=== PATIENT | female | born 1955 | race Caucasian/White ===

== ENCOUNTER → 2018-01-25 | Outpatient (CLI) | payer BC ==
[~2018-01-25] MED LIST: CALC-1038 PO; CLON1TAB5 PO; DOCU250C90 PO; ESTR1TAB17 PO; HYDR-4060 PO; LEVO88TA7 PO; LIOT25 PO; SUMA100T PO
== END | disposition home or self-care (01) ==
LOC: RAH 13:19
PROVIDERS: ATTEND Family Medicine
DX: Z12.31 Encounter for screening mammogram for malignant neoplasm of breast (principal)
CPT/HCPCS: 77067

== ENCOUNTER → 2018-03-04 | Outpatient (CLI) | payer BC | END | disposition home or self-care (01) | LOC: OIH 09:04 | PROVIDERS: ATTEND Neurological Surgery | DX: M47.896 Other spondylosis, lumbar region (principal); M43.26 Fusion of spine, lumbar region | CPT/HCPCS: 72100 ==

== ENCOUNTER → 2018-08-01 | Outpatient (CLI) | payer MEDICARE ==
[~2018-08-01] MED LIST changes: +CLON1TAB12 PO; -CLON1TAB5 PO
== END | disposition home or self-care (01) ==
LOC: RAH 15:47
PROVIDERS: ATTEND Physical Medicine & Rehabilitation
DX: M16.12 Unilateral primary osteoarthritis, left hip (principal)
CPT/HCPCS: 73502

== ENCOUNTER → 2018-11-18 | Outpatient (CLI) | payer MEDICARE | END | disposition home or self-care (01) | LOC: RAH 15:45 | PROVIDERS: ATTEND Physical Medicine & Rehabilitation | DX: M47.812 Spondylosis without myelopathy or radiculopathy, cervical region (principal); M48.02 Spinal stenosis, cervical region; M51.36 Other intervertebral disc degeneration, lumbar region | CPT/HCPCS: 72141 ==

== ENCOUNTER → 2018-12-09 | Outpatient (CLI) | payer MEDICARE ==
[~2018-12-09] MED LIST changes: +GADODIAMIDE 10 MMOL/20 ML ML IV ONE
== END | disposition home or self-care (01) ==
LOC: RAH 14:53
PROVIDERS: ATTEND Physical Medicine & Rehabilitation
DX: M48.061 Spinal stenosis, lumbar region without neurogenic claudication (principal); M51.16 Intervertebral disc disorders with radiculopathy, lumbar region
CPT/HCPCS: 72158; A9579

== ENCOUNTER → 2019-02-19 | Outpatient (CLI) | payer MEDICARE ==
[~2019-02-19] MED LIST changes: -GADODIAMIDE 10 MMOL/20 ML ML IV ONE
== END | disposition home or self-care (01) ==
LOC: RAH 11:13
PROVIDERS: ATTEND Family Medicine
DX: Z01.818 Encounter for other preprocedural examination (principal); M47.815 Spondylosis without myelopathy or radiculopathy, thoracolumbar region
CPT/HCPCS: 71046

== ENCOUNTER → 2019-06-11 | Outpatient (CLI) | payer MEDICARE | END | disposition home or self-care (01) | LOC: RAH 11:20 | PROVIDERS: ATTEND Family Medicine | DX: Z12.31 Encounter for screening mammogram for malignant neoplasm of breast (principal) | CPT/HCPCS: 77067 ==

== ENCOUNTER → 2019-09-02 | Outpatient (CLI) | payer MEDICARE | END | disposition home or self-care (01) | LOC: RAH 10:55 | PROVIDERS: ATTEND Family Medicine | DX: E03.9 Hypothyroidism, unspecified (principal) | CPT/HCPCS: 76536 ==

== ENCOUNTER → 2020-05-10 | Outpatient (CLI) | payer MEDICARE ==
[~2020-05-10] MED LIST changes: +DOCU250C21 PO; -DOCU250C90 PO
== END | disposition home or self-care (01) ==
LOC: RAH 14:02
PROVIDERS: ATTEND Family Medicine
DX: Z01.818 Encounter for other preprocedural examination (principal)
CPT/HCPCS: 71046

== ENCOUNTER 2020-05-26 10:00 | Inpatient (IN) | payer MEDICARE ==
[~2020-05-26] VITALS: Ht 162.6 cm; Wt 59.1 kg
[~2020-05-26 10:00] MED LIST changes: -CALC-1038 PO; -CLON1TAB12 PO; -DOCU250C21 PO
[2020-05-26 12:57] LABS: BASOPHILS % (AUTO) 0.8 % (0.0-5.0); EOSINOPHILS % (AUTO) 1.8 % (0.0-8.0); HEMATOCRIT 39.3 % (36-48); LYMPHOCYTES % (AUTO) 26.2 % (21.0-51.0); MEAN CORPUSCULAR HEMOGLOBIN 31.4 pg (27.0-33.0); MEAN CORPUSCULAR HGB CONC 32.3 g/dL (32.0-36.0); MEAN CORPUSCULAR VOLUME 97.3 fL (79-99); MONOCYTES % (AUTO) 11.5 % (3.0-13.0); NEUTROPHILS % (AUTO) 59.1 % (40.0-77.0); PLATELET COUNT (AUTO) 327 K/uL (130-400); RED BLOOD CELL COUNT(AUTO) 4.04 MIL/uL (4.00-5.50); RED CELL DISTRIBUTION WIDTH 13.5 % (11.0-15.5); WHITE BLOOD COUNT (AUTO) 7.2 K/uL (4.8-10.8)
[2020-05-26 13:09] LABS: CREATININE 0.7 mg/dL (0.5-1.5); POTASSIUM 4.2 mmol/L (3.5-5.1)
[2020-05-26 13:10] LABS: INR 0.91 (0.85-1.15); PROTHROMBIN TIME 9.9 SEC (9.6-11.6)
[2020-05-26 13:57] LABS: APPEARANCE,URINE Clear (CLEAR); BILIRUBIN,URINE Negative (NEGATIVE); COLOR,URINE Dark Yellow (YELLOW); GLUCOSE, URINE (UA) Negative (NEGATIVE); KETONES,URINE Trace mg/dL (NEGATIVE); LEUKOCYTE ESTERASE ,URINE Negative (NEGATIVE); NITRATE,URINE Negative (NEGATIVE); OCCULT BLOOD,URINE Negative (NEGATIVE); PH,URINE 5.5 (5.0-8.0); PROTEIN,URINE Negative (NEGATIVE)
[2020-05-26 14:14] LABS: BACTERIA,URINE Rare /HPF (None Seen); MUCUS,URINE Few LPF (None Seen); RBC,URINE 0-1 /HPF (0-1); SQUAMOUS EPITHELIAL CELL,UR Few /HPF (0-2); WBC,URINE 0-1 /HPF (0-1)
[2020-06-01 11:01] VITALS: BP 111/69
[2020-06-01] MEDS ORDERED: CYCL10TA7 PO (11:42)
[2020-06-01] MEDS ORDERED: [UNRECOGNIZED DRUG - CODE] PO (11:42)
[2020-06-01] MEDS ORDERED: DULO60CA64 PO (11:42)
[2020-06-01] MEDS ORDERED: TRAZ-185 PO (11:42)
[2020-06-02] VITALS (28 sets, daily range): BP systolic 101–121; BP diastolic 44–67
[2020-06-02] MEDS ORDERED: CEFAZOLIN SODIUM 1 GM VIAL IVP SCH (06:00)
[2020-06-02] MEDS ORDERED: LACTATED RINGERS 1000ML 1,000 ML IV ONE (08:12)
[2020-06-02] MEDS ORDERED: MEPERIDINE-PF 25 MG/ML SYG ONE ×3 (08:43→15:59)
[2020-06-02] MEDS ORDERED: ONDANSETRON HCL 4 MG/2 ML VIAL ONE ×2 (08:43→14:45)
[2020-06-02] MEDS ORDERED: METOCLOPRAMIDE 10 MG/2 ML VIAL ONE (11:07)
[2020-06-02] MEDS ORDERED: ACETAMINOPHEN EXTRA STRENGTH 500 MG TABLET ONE (11:07)
[2020-06-02] MEDS ORDERED: CELECOXIB 200 MG CAP ONE (11:08)
[2020-06-02] MEDS ORDERED: KETOROLAC TROMETHAMINE 15MG/ML ONE (11:08)
[2020-06-02] MEDS ORDERED: LIDOCAINE PF 2% 5ML ABBOJECT ONE (11:19)
[2020-06-02] MEDS ORDERED: SUCCINYLCHOLINE CHLORIDE 20 MG/ML 10 ML VIAL ONE (11:19)
[2020-06-02] MEDS ORDERED: FENTANYL CITRATE PF 50 MCG/1 ML 2ML VIAL ONE ×4 (11:20→16:39)
[2020-06-02] MEDS ORDERED: PROPOFOL 10 MG/ML 20ML VIAL IV ONE (11:20)
[2020-06-02] MEDS ORDERED: ROCURONIUM 10MG/1ML SYR 10 MG/ML ML ONE (11:20)
[2020-06-02] MEDS ORDERED: ROPIVACAINE 0.5% 5MG/ML 30ML IJ ONE (11:23)
[2020-06-02] MEDS ORDERED: CEFAZOLIN SODIUM 1 GM VIAL ONE (11:42)
[2020-06-02] MEDS ORDERED: TRANEXAMIC ACID 1000MG/10ML ONE ×2 (11:42→15:54)
[2020-06-02] MEDS ORDERED: CEFAZOLIN SODIUM 1 GM VIAL IRRIG ONE (13:38)
[2020-06-02] MEDS ORDERED: HYDRALAZINE HCL 20 MG/ML VIAL ONE (13:46)
[2020-06-02] MEDS ORDERED: NEOSTIGMINE 5MG/5ML SYR IV ONE (14:45)
[2020-06-02] MEDS ORDERED: GLYCOPYRROLATE 1 MG/5 ML SYRINGE ONE (14:45)
[2020-06-02] MEDS ORDERED: ESMOLOL HCL 10 MG/ML 10 ML VIAL ONE (14:59)
[2020-06-02] MEDS ORDERED: ONDANSETRON HCL 4 MG/2 ML VIAL IVP PRN (15:15)
[2020-06-02] MEDS ORDERED: KETOROLAC TROMETHAMINE 15MG/ML IV PRN (15:15)
[2020-06-02] MEDS: ACETAMINOPHEN EXTRA STRENGTH 500 MG TABLET PO SCH ×2 (15:15→20:49)
[2020-06-02] MEDS ORDERED: TRAMADOL HCL 50 MG TABLET PO PRN (15:15)
[2020-06-02] MEDS ORDERED: FERROUS FUMARATE 324 MG TABLET PO PRN (15:15)
[2020-06-02] MEDS ORDERED: POTASSIUM CHLORIDE 20 MEQ ERTAB PO PRN (15:15)
[2020-06-02] MEDS ORDERED: POTASSIUM CHLORIDE 10% ELIXIR 20 MEQ/15 ML UDCUP PO PRN (15:15)
[2020-06-02] MEDS ORDERED: LIDOCAINE HCL-MPF 1% 2ML VIAL IV PRN (15:15)
[2020-06-02] MEDS ORDERED: POTASSIUM CHLORIDE 20MEQ/100ML 100 ML IV PRN (15:15)
[2020-06-02] MEDS ORDERED: DiphenhydrAMINE HCL 50 MG/ML VIAL IVP PRN (15:15)
[2020-06-02] MEDS ORDERED: TEMAZEPAM 15 MG CAPSULE PO PRN (15:15)
[2020-06-02] MEDS ORDERED: CALCIUM CARBONATE 500 MG TABLET PO PRN (15:15)
--- NOTE | 2020-06-02 17:21 | NUR ---
CM NOTE/RANDY UNSUCCESSFUL PATIENT S/P SURGERY. SPOUSE CALLED, MELLY MAGAÑA, NO ANSWER. VOICEMAIL LEFT TO RETURN CALL. CM TO FOLLOW UP FOR RANDY AND IA
--- NOTE | 2020-06-02 17:29 | NUR ---
CM NOTE/IA /RANDY PATIENT S/P SURGERY, NEXT OF KIN CALLED, SPOUSE, MELLY MAGAÑA. PER SPOUSE, PATIENT LIVES WITH HIM, INDEPENDENT WITH ADLS, HAS CANE BUT DOES NOT USE, NO PROVIDER SERVICES, AND FEELS SAFE FOR PATIENT TO RETURN HOME ONCE DISCHARGED. DCP CONVERSATION INITIATED, RANDY COMPLETED FOR [facility] AND ANY DME IN NETWORK. Addendum: 06/02/20 at 1731 by MARIA ESTHER CHO RN CM Amended: Links added.
--- NOTE | 2020-06-02 17:30 | NUR ---
DCP CM spoke to pt discussed dc plans. Pt is independent prior to admission, lives at home with spuse. Has a cane. Denies any other equipment/services. Feels safe to go back home. Agreeable for home w/HH and DME, telephone consent obtained RANDY for [facility] and [facility] In network DME. DC plan to home w/HH and DME. CM to cont to follow up. Addendum: 06/03/20 at 1553 by RITO NEWTON LVN CM Amended: Links added.
[2020-06-02] MEDS: SODIUM CHLORIDE 0.9% 1000ML 1,000 ML IV SCH ×2 (17:53→22:00)
[2020-06-02] MEDS ORDERED: SUMATRIPTAN SUCCINATE 100 MG PO SCH (18:00)
[2020-06-02] MEDS: PHARMACY COMMUNICATION MISC SCH ×2 (18:15→22:00)
[2020-06-02] MEDS ORDERED: SUMATRIPTAN SUCCINATE 25 MG TABLET PO PRN (18:30)
[2020-06-02] MEDS: OXYCODONE HCL 5 MG TAB PO PRN ×2 (19:28→23:28)
--- NOTE | 2020-06-02 20:00 | NUR ---
assessment note patient awake, alert, ox3, no sob, c/o pain, see pain assessment and treatment, left hip with gillian dressing intact with negative pressure, encourage ble dorsiflexion, reinforce is as previously done by rt, teach patient plan of care and expected outcome, patient verbalizes understanding via teach back
[2020-06-02] MEDS: CEFAZOLIN SODIUM 1 GM VIAL IVP SCH (20:44)
[2020-06-02] MEDS: PREGABALIN 25 MG CAP PO SCH (20:45)
[2020-06-02] MEDS: ASPIRIN 81MG TAB.CHEW PO SCH (20:45)
[2020-06-02] MEDS: CELECOXIB 200 MG CAP PO SCH (20:46)
[2020-06-02] MEDS: FAMOTIDINE 20MG TAB 20 MG TAB PO SCH (20:46)
[2020-06-02] MEDS: ESTRADIOL 0.5 MG TABLET PO SCH (20:46)
[2020-06-02] MEDS: TRAZODONE HCL 50 MG TAB PO SCH (20:46)
[2020-06-02] MEDS ORDERED: NON-FORMULARY MEDICATION 1 EACH (Estradiol 1 MG) PO SCH (21:00)
[2020-06-02] MEDS ORDERED: CYCLOBENZAPRINE HCL 10 MG TABLET PO PRN (23:00)
[2020-06-03] MEDS: OXYCODONE HCL 5 MG TAB PO PRN ×5 (02:03→21:26)
[2020-06-03 04:03] LABS: HEMATOCRIT 30.7 % (36-48); MEAN CORPUSCULAR HEMOGLOBIN 31.9 pg (27.0-33.0); MEAN CORPUSCULAR HGB CONC 32.9 g/dL (32.0-36.0); MEAN CORPUSCULAR VOLUME 96.8 fL (79-99); RED BLOOD CELL COUNT(AUTO) 3.17 MIL/uL (4.00-5.50); RED CELL DISTRIBUTION WIDTH 13.3 % (11.0-15.5); WHITE BLOOD COUNT (AUTO) 8.3 K/uL (4.8-10.8)
[2020-06-03 04:08] VITALS: BP 109/57
[2020-06-03 04:17] LABS: CREATININE 0.9 mg/dL (0.5-1.5); POTASSIUM 3.8 mmol/L (3.5-5.1)
[2020-06-03] MEDS: LIOTHYRONINE 12.5 MCG PO SCH (04:18)
[2020-06-03] MEDS: CEFAZOLIN SODIUM 1 GM VIAL IVP SCH (04:19)
[2020-06-03] MEDS: ACETAMINOPHEN EXTRA STRENGTH 500 MG TABLET PO SCH ×3 (04:20→23:34)
[2020-06-03] MEDS: LEVOTHYROXINE 75 MCG TABLET PO SCH (06:09)
[2020-06-03] MEDS ORDERED: LIOTHYRONINE SODIUM PO SCH (07:30)
[2020-06-03] MEDS ORDERED: LEVOTHYROXINE SODIUM 75 MCG PO SCH (07:30)
[2020-06-03 08:23] VITALS: BP 95/55
[2020-06-03] MEDS ORDERED: NON-FORMULARY MEDICATION 1 EACH (Duloxetine HCl 60 MG) PO SCH (09:00)
--- NOTE | 2020-06-03 09:30 | NUR ---
CM Note: [facility] pending approval, [facility] DME pending approval and delivery CM faxed order, clinicals, PT to [facility], confirmation received. Spoke to Jocelyn, will await request. Pt pending approval. Aware dcp once approved. Primary nurse aware. CM to cont to follow up. CM faxed order, clinicals, PT to [facility], confirmation received. Pt pending approval and delivery for standard walker no wheels and 3 in 1 chair. Primary nurse aware. CM to cont to follow up.
[2020-06-03] MEDS: FAMOTIDINE 20MG TAB 20 MG TAB PO SCH ×2 (09:51→20:10)
[2020-06-03] MEDS: SODIUM CHLORIDE 0.9% 1000ML 1,000 ML IV SCH (09:53)
[2020-06-03] MEDS: CELECOXIB 200 MG CAP PO SCH ×2 (09:54→20:10)
[2020-06-03] MEDS: ASPIRIN 81MG TAB.CHEW PO SCH ×2 (09:54→20:10)
[2020-06-03] MEDS: POLYETHYLENE GLYCOL 3350 17 GM POWD.PACK PO SCH (09:54)
[2020-06-03] MEDS: DULOXETINE HCL 30 MG CAP PO SCH (09:56)
[2020-06-03] MEDS: PHARMACY COMMUNICATION MISC SCH ×2 (09:57→17:27)
[2020-06-03] MEDS: PREGABALIN 25 MG CAP PO SCH ×2 (09:57→20:10)
[2020-06-03 11:00] VITALS: BP 99/57
--- NOTE | 2020-06-03 11:25 | NUR ---
1110 patient signed IM Letter, I faxed IM Letter to [phone] and placed in chart under consent tab.
[2020-06-03 16:57] VITALS: BP 101/55
[2020-06-03 19:45] VITALS: BP 113/57
--- NOTE | 2020-06-03 20:00 | NUR ---
assessment note patient awake, alert, ox3, no sob, no c/o pain at this time, dressing left lateral hip with gillian dressing d/i with negative pressure, encourage deep breathing exercises and reinforce is as previously done with maximum volume inspiration of 1250, teach patient plan of care, pain management and expected outcome, patient verbalizes understanding via teach back
[2020-06-03] MEDS: TRAZODONE HCL 50 MG TAB PO SCH (20:10)
[2020-06-03] MEDS: ESTRADIOL 0.5 MG TABLET PO SCH (20:10)
[2020-06-03 23:56] VITALS: BP 101/56
[2020-06-04] MEDS: PHARMACY COMMUNICATION MISC SCH (01:31)
[2020-06-04] MEDS: OXYCODONE HCL 5 MG TAB PO PRN ×3 (03:18→13:10)
[2020-06-04 03:52] VITALS: BP 98/56
[2020-06-04 04:40] LABS: HEMATOCRIT 26.7 % (36-48); MEAN CORPUSCULAR HEMOGLOBIN 31.5 pg (27.0-33.0); MEAN CORPUSCULAR HGB CONC 32.2 g/dL (32.0-36.0); MEAN CORPUSCULAR VOLUME 97.8 fL (79-99); RED BLOOD CELL COUNT(AUTO) 2.73 MIL/uL (4.00-5.50); RED CELL DISTRIBUTION WIDTH 13.3 % (11.0-15.5); WHITE BLOOD COUNT (AUTO) 6.8 K/uL (4.8-10.8)
[2020-06-04 04:57] LABS: CREATININE 0.7 mg/dL (0.5-1.5); POTASSIUM 3.8 mmol/L (3.5-5.1)
[2020-06-04] MEDS: LIOTHYRONINE 12.5 MCG PO SCH (05:57)
[2020-06-04] MEDS: LEVOTHYROXINE 75 MCG TABLET PO SCH (06:05)
[2020-06-04] MEDS: ACETAMINOPHEN EXTRA STRENGTH 500 MG TABLET PO SCH (06:06)
[2020-06-04 07:30] VITALS: BP_SYST 115; BP_SYST 94; BP_DIAS 55; BP_DIAS 56
[2020-06-04] MEDS: PREGABALIN 25 MG CAP PO SCH (09:06)
[2020-06-04] MEDS: POLYETHYLENE GLYCOL 3350 17 GM POWD.PACK PO SCH (09:06)
[2020-06-04] MEDS: DULOXETINE HCL 30 MG CAP PO SCH (09:06)
[2020-06-04] MEDS: CELECOXIB 200 MG CAP PO SCH (09:07)
[2020-06-04] MEDS: FAMOTIDINE 20MG TAB 20 MG TAB PO SCH (09:07)
[2020-06-04] MEDS: ASPIRIN 81MG TAB.CHEW PO SCH (09:07)
--- NOTE | 2020-06-04 09:40 | NUR ---
CM Note: [facility] approval, [facility] DME approval CM spoke to Jocelyn george/[facility], pt has approval. Primary nurse to give report once pt ready to DC. CM verified [facility] delivered standard walker no wheels in pt's room. DME to coordinate w/spouse regarding 3 in 1 chair at home, private pay. Pt safe to DC via private car once MD clear. Dr Martinez updated, verbalized will come between 10-11 today to DC pt. Primary nurse aware. CM to cont to follow up.
[2020-06-04 11:00] VITALS: BP 106/38
[2020-06-04] MEDS ORDERED: FERR324T10 PO (11:16)
[2020-06-04] MEDS ORDERED: HYDR-4060 PO (11:16)
[2020-06-04] MEDS ORDERED: ASPI-1005 PO (11:16)
--- NOTE | 2020-06-04 14:20 | NUR ---
DISCHARGE PATIENT GIVEN DISCHARGE INSTRUCTIONS VIA TEACH BACK. 20G PIV TO LEFT WRIST DISCONTINUED, TIP INTACT. PATIENT INSTRUCTED REGARDING PAIN MEDICATION, ANTICOAGULANT, HOME HEALTH SERVICES, PHYSICAL THERAPY AND PROTECTING [employer] DRESSING BATTERY WHEN SHOWERING. PATIENT HAS OWN WALKER. [employer] DRESSING TO LEFT HIP CHANGED AND LABELED TO BE REMOVED ON 06/10/20 BY [facility]. REPORT GIVEN TO RAJNI MANUEL LVN AT [facility]. PATIENT TO BE DISCHARGED WITH HOME HEALTH FOR NURSING AND PHYSICAL THERAPY SERVICES. PATIENT DENIES ANY PAIN AT THIS TIME. PATIENT WHEELED TO [facility] FOR DISCHARGE BY ETIENNE TRINIDAD.
[2020-06-05] MEDS ORDERED: BISACODYL 10 MG SUPP.RECT RC PRN (15:15)
--- NOTE | 2020-06-10 11:41 | NUR ---
LATE ENTRY- 06/04/20 AT 1115 - DR. TERRELL STATED, "DISCHARGE ORDERS ARE IN BUT PATIENT CAN NOT BE DISCHARGED UNTIL AFTER 2ND THERAPY SESSION OF THE DAY". 06/04/20 AT 1355 - PHYSICAL THERAPY PRESENT AND ASSISTING PATIENT TO AMBULATE WITH WALKER.
== END 2020-06-04 15:30 | disposition home health service (06) | DRG 470 ==
LOC: EDSTATUS 10:00 → DAHIP 06-02 07:48 → 3BH 06-02 17:23
PROVIDERS: ADMIT Orthopaedic Surgery; ATTEND Orthopaedic Surgery
PROC: 0SRB0JZ Replacement of Left Hip Joint with Synthetic Substitute, Open Approach (ICD-10-PCS; principal; 2020-06-02 12:09)
DX: M16.12 Unilateral primary osteoarthritis, left hip (principal); D62 Acute posthemorrhagic anemia; E03.9 Hypothyroidism, unspecified; Z85.820 Personal history of malignant melanoma of skin; Z90.710 Acquired absence of both cervix and uterus; Z20.828 Contact with and (suspected) exposure to other viral communicable diseases; Z90.49 Acquired absence of other specified parts of digestive tract; Z98.1 Arthrodesis status
CPT/HCPCS: 36415; 73503; 80048; 81001; 85025; 85027; 85610; 87641; 96374; 96375; 97039; C1776; G0378; J0330; J0360; J0690; J1885; J2001; J2175; J2405; J2704; J2710; J2765; J2795; J3010; J3490; J7030; J7120; U0003

== ENCOUNTER → 2020-07-30 | Outpatient (CLI) | payer MEDICARE ==
[~2020-07-30] MED LIST changes: +ASPI-1005 PO; +CYCL10TA7 PO; +DULO60CA64 PO; +FERR324T10 PO; +TRAZ-185 PO; +[UNRECOGNIZED DRUG - CODE] PO
== END | disposition home or self-care (01) ==
LOC: RAH 09:32
PROVIDERS: ATTEND Physical Medicine & Rehabilitation
DX: M48.061 Spinal stenosis, lumbar region without neurogenic claudication (principal); M51.86 Other intervertebral disc disorders, lumbar region; Z96.642 Presence of left artificial hip joint
CPT/HCPCS: 72114

== ENCOUNTER → 2020-08-23 | Outpatient (CLI) | payer MEDICARE | END | disposition home or self-care (01) | LOC: RAH 14:54 | PROVIDERS: ATTEND Physical Medicine & Rehabilitation | DX: M47.22 Other spondylosis with radiculopathy, cervical region (principal); M48.02 Spinal stenosis, cervical region | CPT/HCPCS: 72141 ==

== ENCOUNTER → 2020-10-06 | Outpatient (CLI) | payer MEDICARE | END | disposition home or self-care (01) | LOC: RAH 13:40 | PROVIDERS: ATTEND Physical Medicine & Rehabilitation | DX: M25.552 Pain in left hip (principal); Z96.642 Presence of left artificial hip joint | CPT/HCPCS: 73502 ==

== ENCOUNTER 2021-08-25 16:00 | Inpatient (IN) | payer MEDICARE ==
[~2021-08-25] VITALS: Ht 160 cm; Wt 59.0 kg
[~2021-08-25 16:00] MED LIST changes: -ASPI-1005 PO; -CYCL10TA7 PO; -FERR324T10 PO; -HYDR-4060 PO; -LEVO88TA7 PO; -[UNRECOGNIZED DRUG - CODE] PO
[2021-08-26 10:54] LABS: APPEARANCE,URINE Clear (CLEAR); BILIRUBIN,URINE Negative (NEGATIVE); COLOR,URINE Yellow (YELLOW); GLUCOSE, URINE (UA) Negative (NEGATIVE); KETONES,URINE Negative (NEGATIVE); LEUKOCYTE ESTERASE ,URINE Negative (NEGATIVE); NITRATE,URINE Negative (NEGATIVE); OCCULT BLOOD,URINE Negative (NEGATIVE); PROTEIN,URINE Negative (NEGATIVE); UROBILINOGEN,URINE 0.2 mg/dL (0.2-1.0)
[2021-08-26 15:19] VITALS: BP 102/58
[2021-08-26] MEDS ORDERED: GABA300C PO (15:56)
[2021-08-26] MEDS ORDERED: FOLI0.4T6 PO (15:56)
[2021-08-26] MEDS ORDERED: DOCU50CA13 PO (15:56)
[2021-08-26] MEDS ORDERED: CALC-190 PO (15:56)
[2021-08-26] MEDS ORDERED: MV-M1TAB45 PO (15:57)
[2021-08-26] MEDS ORDERED: ASCO500C18 PO (15:57)
[2021-08-26] MEDS ORDERED: LEVO-171 PO (16:11)
[2021-08-29] VITALS (30 sets, daily range): BP systolic 91–156; BP diastolic 42–81
[2021-08-29] MEDS ORDERED: CEFAZOLIN SODIUM 1 GM VIAL ONE ×2 (09:55→13:16)
[2021-08-29] MEDS ORDERED: LACTATED RINGERS 1000ML 1,000 ML IV ONE (09:56)
[2021-08-29] MEDS ORDERED: TRAMADOL HCL 50 MG TABLET ONE (10:34)
[2021-08-29] MEDS ORDERED: METOCLOPRAMIDE 10 MG/2 ML VIAL ONE (12:40)
[2021-08-29] MEDS ORDERED: CELECOXIB 200 MG CAP ONE (12:41)
[2021-08-29] MEDS ORDERED: ACETAMINOPHEN 500 MG TABLET ONE (12:41)
[2021-08-29] MEDS ORDERED: TRANEXAMIC ACID 1000MG/10ML ONE ×2 (13:17→18:41)
[2021-08-29] MEDS ORDERED: NALOXONE HCL 0.4 MG/1 ML ML IVP PRN (14:00)
[2021-08-29] MEDS ORDERED: RACEPINEPHRINE HCL 2.25% 0.5 ML NEB SOLN NEB PRN (14:00)
[2021-08-29] MEDS ORDERED: IPRATROPIUM/ALBUTEROL SULFATE 3 ML SOLUTION IH PRN (14:00)
[2021-08-29] MEDS ORDERED: METOCLOPRAMIDE 10 MG/2 ML VIAL IVP PRN (14:00)
[2021-08-29] MEDS ORDERED: PROMETHAZINE HCL 25 MG/ML 1ML AMPULE IM PRN (14:00)
[2021-08-29] MEDS ORDERED: ONDANSETRON 4MG INJ IVP PRN ×2 (14:00→18:30)
[2021-08-29] MEDS ORDERED: LIDOCAINE PF 100MG/5ML (2%) SYRINGE 5ML ONE ×2 (14:58→15:03)
[2021-08-29] MEDS ORDERED: SUCCINYLCHOLINE CHLORIDE 20 MG/ML 10 ML VIAL ONE ×2 (14:58→15:03)
[2021-08-29] MEDS ORDERED: ONDANSETRON 4MG INJ ONE (14:58)
[2021-08-29] MEDS ORDERED: SUCCINYLCHOLINE 200MG/10ML SYR ONE (14:58)
[2021-08-29] MEDS ORDERED: FENTANYL CITRATE PF 50 MCG/1 ML 2ML VIAL ONE (14:59)
[2021-08-29] MEDS ORDERED: PROPOFOL 10 MG/ML 20ML VIAL IV ONE (14:59)
[2021-08-29] MEDS ORDERED: MIDAZOLAM HCL 1 MG/ML 2ML VIAL ONE (14:59)
[2021-08-29] MEDS ORDERED: ROCURONIUM 10MG/1ML SYR 10 MG/ML ML ONE ×2 (14:59→17:00)
[2021-08-29] MEDS ORDERED: GLYCOPYRROLATE 1 MG/5 ML SYRINGE ONE (14:59)
[2021-08-29] MEDS ORDERED: NEOSTIGMINE 5MG/5ML SYR IV ONE (14:59)
[2021-08-29] MEDS ORDERED: ROPIVACAINE 0.5% 5MG/ML 30ML IJ ONE (15:01)
[2021-08-29] MEDS ORDERED: CEFAZOLIN SODIUM 2 GM VIAL IV ONE (15:40)
[2021-08-29] MEDS ORDERED: LIDOCAINE HCL-MPF 1% 2ML VIAL IV PRN (18:30)
[2021-08-29] MEDS ORDERED: POTASSIUM CHLORIDE 20MEQ/100ML 100 ML IV PRN (18:30)
[2021-08-29] MEDS ORDERED: TRAMADOL HCL 50 MG TABLET PO PRN (18:30)
[2021-08-29] MEDS ORDERED: FERROUS FUMARATE 324 MG TABLET PO PRN (18:30)
[2021-08-29] MEDS ORDERED: POTASSIUM CHLORIDE 10% ELIXIR 20 MEQ/15 ML UDCUP PO PRN (18:30)
[2021-08-29] MEDS: 0.9%NACL 1000ML 1,000 ML IV SCH (18:30)
[2021-08-29] MEDS ORDERED: DiphenhydrAMINE HCL 50 MG/ML VIAL IVP PRN (18:30)
[2021-08-29] MEDS ORDERED: CALCIUM CARB 500MG PO PRN (18:30)
[2021-08-29] MEDS ORDERED: KCL 20 MEQ ERTAB PO PRN (18:30)
[2021-08-29] MEDS ORDERED: MEPERIDINE-PF 25 MG/ML SYG ONE ×2 (18:52→19:04)
[2021-08-29] MEDS: KETOROLAC 15MG/ML VIAL (15MG/ML) IV PRN (19:57)
[2021-08-29] MEDS ORDERED: SUMATRIPTAN SUCCINATE 25 MG TABLET PO PRN (21:00)
[2021-08-29] MEDS: DOCUSATE SODIUM 100 MG CAP PO SCH (21:03)
[2021-08-29] MEDS: FOLIC ACID 1 MG TABLET PO SCH (21:04)
[2021-08-29] MEDS: OXYCODONE HCL 5 MG TAB PO PRN (21:06)
[2021-08-29] MEDS: ACETAMINOPHEN 500 MG TABLET PO SCH (21:06)
[2021-08-29] MEDS: FAMOTIDINE 20MG TAB PO SCH (21:07)
[2021-08-29] MEDS: GABAPENTIN 300 MG CAPSULE PO SCH (21:07)
[2021-08-29] MEDS: LEVOTHYROXINE 75 MCG TABLET PO SCH (21:07)
[2021-08-29] MEDS: ASCORBIC ACID 500 MG TAB PO SCH (21:08)
[2021-08-29] MEDS: CELECOXIB 200 MG CAP PO SCH (21:08)
[2021-08-29] MEDS: TRAZODONE HCL 50 MG TAB PO SCH (21:08)
[2021-08-29] MEDS: ASPIRIN 81 MG EC TAB PO SCH (21:08)
[2021-08-29] MEDS: CA 600MG+VIT D 400 UNIT TAB 1 TAB TABLET PO SCH (21:08)
[2021-08-29] MEDS: ESTRADIOL 0.5 MG TABLET PO SCH (21:09)
[2021-08-29] MEDS ORDERED: HYDROMORPHONE 1 MG INJ IVP PRN (23:30)
[2021-08-30] MEDS: OXYCODONE HCL 5 MG TAB PO PRN ×3 (00:48→17:45)
[2021-08-30] MEDS: CEFAZOLIN SODIUM 1 GM VIAL IVP SCH ×2 (00:49→07:30)
[2021-08-30] MEDS: ACETAMINOPHEN 500 MG TABLET PO SCH ×3 (02:43→17:45)
[2021-08-30] MEDS: KETOROLAC 15MG/ML VIAL (15MG/ML) IV PRN ×2 (02:43→21:14)
[2021-08-30 04:11] VITALS: BP 135/64
[2021-08-30 04:28] LABS: HEMATOCRIT 28.3 % (36-48); MEAN CORPUSCULAR HEMOGLOBIN 31.1 pg (27.0-33.0); MEAN CORPUSCULAR HGB CONC 32.2 g/dL (32.0-36.0); MEAN CORPUSCULAR VOLUME 96.6 fL (79-99); RED BLOOD CELL COUNT(AUTO) 2.93 MIL/uL (4.00-5.50); RED CELL DISTRIBUTION WIDTH 13.4 % (11.0-15.5); WHITE BLOOD COUNT (AUTO) 9.4 K/uL (4.8-10.8)
[2021-08-30 04:37] LABS: CREATININE 0.8 mg/dL (0.5-1.5)
[2021-08-30] MEDS: LIOTHYRONINE SODIUM PO SCH (07:30)
[2021-08-30 08:14] VITALS: BP 115/69
[2021-08-30] MEDS: FAMOTIDINE 20MG TAB PO SCH ×2 (09:23→21:06)
[2021-08-30] MEDS: ASCORBIC ACID 500 MG TAB PO SCH ×2 (09:23→21:05)
[2021-08-30] MEDS: CELECOXIB 200 MG CAP PO SCH ×2 (09:24→21:06)
[2021-08-30] MEDS: ASPIRIN 81 MG EC TAB PO SCH ×2 (09:24→21:06)
[2021-08-30] MEDS: DULOXETINE HCL 30 MG CAP PO SCH (09:24)
[2021-08-30] MEDS: GABAPENTIN 300 MG CAPSULE PO SCH ×2 (09:24→21:05)
[2021-08-30] MEDS: FOLIC ACID 1 MG TABLET PO SCH ×2 (09:24→21:05)
[2021-08-30] MEDS: POLYETHYLENE GLYCOL 3350 17 GM POWD.PACK PO SCH (09:24)
[2021-08-30] MEDS: CA 600MG+VIT D 400 UNIT TAB 1 TAB TABLET PO SCH ×2 (09:24→21:06)
[2021-08-30] MEDS ORDERED: KETOROLAC 30MG VIAL (30MG/ML) ONE (09:28)
[2021-08-30 10:46] VITALS: BP 109/68
[2021-08-30] MEDS: 0.9%NACL 1000ML 1,000 ML IV SCH (13:52)
[2021-08-30 15:25] VITALS: BP 116/69
[2021-08-30] MEDS: ESTRADIOL 0.5 MG TABLET PO SCH (21:00)
[2021-08-30 21:01] VITALS: BP 97/47
[2021-08-30] MEDS: DOCUSATE SODIUM 100 MG CAP PO SCH (21:05)
[2021-08-30] MEDS: LEVOTHYROXINE 75 MCG TABLET PO SCH (21:05)
[2021-08-30] MEDS: TRAZODONE HCL 50 MG TAB PO SCH (21:06)
[2021-08-30 23:57] VITALS: BP 96/49
[2021-08-31] MEDS: ACETAMINOPHEN 500 MG TABLET PO SCH ×2 (02:30→11:04)
[2021-08-31] MEDS: OXYCODONE HCL 5 MG TAB PO PRN ×4 (04:18→18:34)
[2021-08-31 04:37] VITALS: BP 107/50
[2021-08-31] MEDS: LIOTHYRONINE SODIUM PO SCH (07:30)
[2021-08-31 07:53] VITALS: BP 107/53
[2021-08-31] MEDS: DULOXETINE HCL 30 MG CAP PO SCH (09:05)
[2021-08-31] MEDS: FAMOTIDINE 20MG TAB PO SCH (09:05)
[2021-08-31] MEDS: ASPIRIN 81 MG EC TAB PO SCH (09:05)
[2021-08-31] MEDS: FOLIC ACID 1 MG TABLET PO SCH (09:05)
[2021-08-31] MEDS: CA 600MG+VIT D 400 UNIT TAB 1 TAB TABLET PO SCH (09:05)
[2021-08-31] MEDS: POLYETHYLENE GLYCOL 3350 17 GM POWD.PACK PO SCH (09:06)
[2021-08-31] MEDS: ASCORBIC ACID 500 MG TAB PO SCH (09:06)
[2021-08-31] MEDS: CELECOXIB 200 MG CAP PO SCH (09:06)
[2021-08-31] MEDS: GABAPENTIN 300 MG CAPSULE PO SCH (09:06)
[2021-08-31 10:40] VITALS: BP 96/55
[2021-08-31] MEDS: KETOROLAC 15MG/ML VIAL (15MG/ML) IV PRN (11:04)
[2021-08-31 15:41] VITALS: BP 101/57
[2021-08-31] MEDS ORDERED: HYDR-4060 PO (17:30)
[2021-08-31] MEDS ORDERED: AEC81 PO (17:30)
[2021-09-01] MEDS ORDERED: BISACODYL 10 MG SUPP.RECT RC PRN (18:30)
== END 2021-08-31 18:20 | disposition home health service (06) | DRG 470 ==
LOC: OBSVTOIN 08-29 08:04 → DAHIP 08-29 08:04 → EDSTATUS 08-29 13:00 → 4AH 08-29 19:32
PROVIDERS: ADMIT Orthopaedic Surgery; ATTEND Orthopaedic Surgery
PROC: 0SR902Z Replacement of Right Hip Joint with Metal on Polyethylene Synthetic Substitute, Open Approach (ICD-10-PCS; principal; 2021-08-29 16:11)
DX: M16.11 Unilateral primary osteoarthritis, right hip (principal); D64.9 Anemia, unspecified; E03.9 Hypothyroidism, unspecified; Z96.642 Presence of left artificial hip joint; Z20.822 Contact with and (suspected) exposure to COVID-19; Z85.840 Personal history of malignant neoplasm of eye; Z90.710 Acquired absence of both cervix and uterus; Z88.5 Allergy status to narcotic agent; Z88.8 Allergy status to other drugs, medicaments and biological substances; Z91.048 Other nonmedicinal substance allergy status; Z90.49 Acquired absence of other specified parts of digestive tract
CPT/HCPCS: 36415; 73503; 80048; 81003; 85027; 87088; 87635; 87641; 88305; 88311; 97039; G0378; J0330; J0690; J1170; J1885; J2001; J2175; J2250; J2405; J2704; J2710; J2765; J2795; J3010; J3490; J7120

== ENCOUNTER → 2022-09-05 | Outpatient (CLI) | payer MEDICARE ==
[~2022-09-05] MED LIST changes: +ASCO500C18 PO; +CALC-190 PO; +DOCU50CA13 PO; +FOLI0.4T6 PO; +GABA300C PO; +HYDR-4060 PO; +LEVO-171 PO; +MV-M1TAB45 PO
== END | disposition home or self-care (01) ==
LOC: RAH 13:44
PROVIDERS: ATTEND Student in an Organized Health Care Education/Training Program
DX: M97.01XD Periprosthetic fracture around internal prosthetic right hip joint, subsequent encounter (principal); Z96.641 Presence of right artificial hip joint
CPT/HCPCS: 73700

== ENCOUNTER → 2023-01-30 | Outpatient (CLI) | payer MEDICARE | END | disposition home or self-care (01) | LOC: RAH 13:42 | PROVIDERS: ATTEND Family Medicine | DX: Z12.31 Encounter for screening mammogram for malignant neoplasm of breast (principal) | CPT/HCPCS: 77067 ==

== ENCOUNTER → 2024-05-12 | Outpatient (CLI) | payer MEDICARE | END | disposition home or self-care (01) | LOC: RAH 15:18 | PROVIDERS: ATTEND Family Medicine | DX: Z12.31 Encounter for screening mammogram for malignant neoplasm of breast (principal); R92.323 Mammographic fibroglandular density, bilateral breasts | CPT/HCPCS: 77067 ==

== ENCOUNTER → 2025-07-09 | Outpatient (CLI) | payer MEDICARE | END | disposition home or self-care (01) | LOC: RAH 10:22 | PROVIDERS: ATTEND Family Medicine | DX: Z12.31 Encounter for screening mammogram for malignant neoplasm of breast (principal) | CPT/HCPCS: 77063; 77067 ==

== ENCOUNTER → 2025-07-23 | Outpatient (CLI) | payer MEDICARE ==
--- NOTE | 2025-07-31 11:22 | HMCIMG ---
BILATERAL BREAST ULTRASOUND: Finding: Real-time examination of the both breasts demonstrates heterogeneous echotexture throughout both the breasts without evidence of focal solid mass. Both breasts appears to have fibrocystic changes. There are multiple subcentimeter minutes cysts seen in both breasts the largest on the right is 1.5 x 0.8 x 1.3 cm at 12:00 just 2:00 cyst and 1.2 x 0.8 x 1.4 cm. On the left side there are also multiple subcentimeter cysts seen the largest also at 12:00 measuring 0.6 x 0.5 x 0.6 cm at 3:00 there is a cyst measuring 1.1 x 0.6 x 1.2 cm then there is a complex cyst at 6:00 measuring 0.6 x 0.3 x 0.4 cm. There is bilateral ductal ectasia. IMPRESSION: Dense breast with fibrocystic changes No hypoechoic lesion seen. I would recommend annual mammography with tomography with bilateral breast sonogram. FINAL ASSESSMENT: ACR: BI-RAD- 2. Benign Finding.
== END | disposition home or self-care (01) ==
LOC: RAH 09:22
PROVIDERS: ATTEND Family Medicine
DX: N60.11 Diffuse cystic mastopathy of right breast (principal); N60.12 Diffuse cystic mastopathy of left breast; N60.02 Solitary cyst of left breast; N60.01 Solitary cyst of right breast; N60.42 Mammary duct ectasia of left breast; N60.41 Mammary duct ectasia of right breast; R92.8 Other abnormal and inconclusive findings on diagnostic imaging of breast